=== PATIENT | female | born 1950 | race Caucasian/White ===

== ENCOUNTER 2021-04-27 14:01 | Emergency (ER) | payer OTHER, MEDICARE, SELFPAY ==
[~2021-04-27] VITALS: Ht 157.5 cm; Wt 61.2 kg
[~2021-04-27 14:01] MED LIST: hormone patch
[2021-04-27 14:21] VITALS: BP_SYST 159
[2021-04-27] MEDS ORDERED: KETOROLAC TROMETHAMINE 30 MG VIAL IVP ONE (14:45)
[2021-04-27] MEDS ORDERED: NACL 0.9% 1,000 ML IV ONE (15:00)
[2021-04-27 15:04] LABS: BASOPHILS # (AUTO) 0.1 K/uL (0.0-0.2); BASOPHILS % (AUTO) 1.6 % (0.0-2.0); EOSINOPHILS # (AUTO) 0.1 K/uL (0.0-0.4); EOSINOPHILS % (AUTO) 1.2 % (0.0-4.0); HEMATOCRIT 40.1 % (36-48); HEMOGLOBIN 13.3 g/dL (12.0-16.0); LYMPHOCYTES % (AUTO) 26.5 % (20.5-51.5); MEAN CORPUSCULAR HEMOGLOBIN 27 pg (27-31); MEAN CORPUSCULAR HGB CONC 33 % (32-36); MEAN CORPUSCULAR VOLUME 82 fL (79.0-98.0); MONOCYTES # (AUTO) 0.3 K/uL (0.0-1.0); MONOCYTES % (AUTO) 4.5 % (1.7-9.3); NEUTROPHILS # (AUTO) 5.1 K/uL (1.8-7.7); NEUTROPHILS % (AUTO) 66.2 % (40.0-70.0); PLATELET COUNT (AUTO) 175 K/uL (130-430); RED BLOOD CELL COUNT(AUTO) 4.87 MIL/uL (4.2-6.2); RED CELL DISTRIBUTION WIDTH 14.4 % (9.0-15.0); WHITE BLOOD COUNT (AUTO) 7.7 K/uL (4.8-10.8)
[2021-04-27 15:43] LABS: PROTHROMBIN TIME 10.2 SECS (9.5-12.5)
[2021-04-27 15:57] LABS: ANION GAP 3 (5-15); CALCIUM 9.1 mg/dL (8.4-11.0); CHLORIDE 104 mmol/L (98-107); CREATININE 0.82 mg/dL (0.55-1.30); GLUCOSE 95 mg/dL (70-99); POTASSIUM 4.5 mmol/L (3.5-5.1); SODIUM SERUM 136 mmol/L (136-145); UREA NITROGEN, BLOOD 18 mg/dL (8-21)
[2021-04-27 16:07] LABS: ALANINE AMINOTRANSFERASE 25 U/L (12-78); ALBUMIN 3.7 g/dL (3.4-4.8); ASPARTATE AMINOTRANSFERASE 23 U/L (10-37); TOTAL BILIRUBIN 0.4 mg/dL (0.0-1.0)
[2021-04-27] MEDS ORDERED: KETOROLAC TROMETHAMINE 30 MG VIAL ONE (17:48)
[2021-04-27 19:11] VITALS: BP_SYST 159
== END 2021-04-27 19:11 | disposition home or self-care (01) ==
LOC: SED 14:01
DX: G43.B0 Ophthalmoplegic migraine, not intractable (principal); Z88.1 Allergy status to other antibiotic agents
CPT/HCPCS: 36415; 70450; 76376; 80048; 80053; 84484; 85025; 85610; 85730; 96361; 96374; 99285; J1885